=== PATIENT | male | born 1985 | race Caucasian/White ===

== ENCOUNTER 2020-09-21 09:42 | Emergency (ER) | payer MEDICAID ==
[~2020-09-21] VITALS: Ht 175.3 cm; Wt 82.0 kg
[2020-09-21 09:52] VITALS: BP 138/81
--- NOTE | 2020-09-21 10:10 | NUR ---
PT HAS CO FLANK PAIN, HEMATURIA, N/V. SYMPTOMS STARTED THIS AM.
[2020-09-21] MEDS ORDERED: ONDANSETRON 2MG/ML, 2ML ONE (10:16)
[2020-09-21] MEDS ORDERED: MORPHINE SULFATE 4 MG/ML, 1ML ONE (10:16)
[2020-09-21] MEDS ORDERED: ONDANSETRON 2MG/ML, 2ML IVPush ONE (10:30)
[2020-09-21] MEDS ORDERED: MORPHINE SULFATE 4 MG/ML, 1ML IVPush PRN (10:30)
[2020-09-21] MEDS ORDERED: SODIUM CHLORIDE FLUSH 10ML SYR IVF ONE (10:30)
[2020-09-21 10:32] LABS: BASOPHILS % (AUTO) 0 % (0-1); EOSINOPHILS % (AUTO) 1 % (1-7); LYMPHOCYTES % (AUTO) 10 % (22-44); MEAN PLATELET VOLUME 7.5 fL (7.4-10.4); MONOCYTES % (AUTO) 6 % (2-9); NEUTROPHILS % (AUTO) 83 % (42-75); PLATELET COUNT 330 x10^3/uL (130-400); RED CELL DISTRIBUTION WIDTH 13.4 % (9.4-14.8)
[2020-09-21 10:46] LABS: ALANINE AMINOTRANSFERASE 62 U/L (12-78); ANION GAP 6 mmol/L (5-15); CALCIUM 9.2 mg/dL (8.5-10.1); CHLORIDE 110 mmol/L (98-107); CREATININE 1.04 mg/dL (0.7-1.3)
[2020-09-21 10:47] LABS: ALKALINE PHOSPHATASE 118 U/L (45-117); BILIRUBIN,TOTAL 1.3 mg/dL (0.2-1.0); TOTAL PROTEIN 7.6 g/dL (6.4-8.2)
--- NOTE | 2020-09-21 10:51 | NUR ---
MEDICATED PER ORDERS, LABS, PIV. ENCOURAGED PT TO VOID FOR UA SAMPLE
[2020-09-21 10:54] LABS: MD SCAN
[2020-09-21 11:27] LABS: MICROSCOPIC INDICATED
--- NOTE | 2020-09-21 13:23 | NUR ---
Patient/Caregiver given discharge instructions and they have confirmed that they understand the instructions. Patient ambulatory with steady gait.
== END 2020-09-21 13:49 | disposition home or self-care (01) ==
LOC: ED 13:30
DX: N13.2 Hydronephrosis with renal and ureteral calculous obstruction (principal); R31.9 Hematuria, unspecified; R11.2 Nausea with vomiting, unspecified; R10.9 Unspecified abdominal pain
CPT/HCPCS: 36415; 74176; 80053; 81001; 85025; 87086; 96374; 96375; 99284; J2270; J2405

== ENCOUNTER 2020-10-13 14:14 | Observation (INO) | payer MEDICAID ==
[~2020-10-13] VITALS: Ht 177.8 cm; Wt 87.0 kg
--- NOTE | 2020-10-13 14:26 | NUR ---
PATIENT HERE LEFT SIDED FLANK PAIN BELIVES IT TO BE A KIDNEY STONE. THIS HAPPENED TO HIM THREE WEEKS AGO WELL.
[2020-10-13] MEDS ORDERED: FLUO10CA13 PO (14:31)
--- NOTE | 2020-10-13 14:34 | NUR ---
PATIETN UP AND WALKING TO BATHROOM FOR URINE SAMPLE. GOOD ON FEET
[2020-10-13] MEDS ORDERED: KETOROLAC 30 MG/1 ML IVPush ONE (15:00)
[2020-10-13] MEDS ORDERED: ONDANSETRON 2MG/ML, 2ML IVPush ONE (15:00)
[2020-10-13] MEDS ORDERED: MORPHINE SULFATE 4 MG/ML, 1ML IVPush ONE (15:00)
[2020-10-13] MEDS ORDERED: KETOROLAC 30 MG/1 ML ONE (15:02)
[2020-10-13] MEDS ORDERED: ONDANSETRON 2MG/ML, 2ML ONE (15:02)
[2020-10-13] MEDS ORDERED: MORPHINE SULFATE 4 MG/ML, 1ML ONE (15:02)
[2020-10-13 15:35] LABS: ANION GAP 3 mmol/L (5-15); CHLORIDE 113 mmol/L (98-107); CREATININE 1.13 mg/dL (0.7-1.3)
[2020-10-13 15:41] LABS: BASOPHILS % (AUTO) 0 % (0-1); EOSINOPHILS % (AUTO) 1 % (1-7); LYMPHOCYTES % (AUTO) 11 % (22-44); MEAN CORPUSCULAR HEMOGLOBIN 30.1 pg (27.5-34.5); MEAN CORPUSCULAR HGB CONC 34.6 g/dL (33.2-36.2); MEAN PLATELET VOLUME 7.7 fL (7.4-10.4); MONOCYTES % (AUTO) 7 % (2-9); NEUTROPHILS % (AUTO) 82 % (42-75); PLATELET COUNT 277 x10^3/uL (130-400); RED BLOOD COUNT 5.11 x10^6/uL (4.38-5.82)
[2020-10-13 15:42] LABS: MD NO
[2020-10-13 15:43] LABS: MICROSCOPIC INDICATED
--- NOTE | 2020-10-13 16:14 | NUR ---
PAIN RELIEVED AFTER MEDS, VSS, PT UP FOR RECHECK. NAD.
--- NOTE | 2020-10-13 16:18 | NUR ---
PLAN UROLOGY CONSULT.
[2020-10-13] MEDS ORDERED: ONDANSETRON 2MG/ML, 2ML IVPush PRN ×2 (17:00→18:30)
--- NOTE | 2020-10-13 17:00 | NUR ---
REPORT TO [employer]ES PROFESSIONAL.
--- NOTE | 2020-10-13 17:04 | NUR ---
ATE DINNER YESTERDAY AND 2 SMALL PRETZEL CHIPS 1 HOUR AGO
--- NOTE | 2020-10-13 17:28 | NUR ---
ATTEMPT TO CALL X1.
[2020-10-13] MEDS ORDERED: SODIUM CHLORIDE FLUSH 10ML SYR IVF PRN (17:30)
[2020-10-13] MEDS ORDERED: MORPHINE SULFATE 4 MG/ML, 1ML IVPush PRN (17:30)
[2020-10-13] MEDS ORDERED: SODIUM CHLORIDE 0.9% 1,000 ML IV ONE (17:30)
--- NOTE | 2020-10-13 17:36 | NUR ---
report to benoit conrad. as
--- NOTE | 2020-10-13 17:42 | NUR ---
DT PT EATING PRETZELS ADM OVERNITE FOR PAIN CONTROL AND SURG AT [address] JONATHAN MAY IN ROOM. UPDATED FLOOR NURSE ALFREDO AND OR NURSE JEAN-BAPTISTE.
[2020-10-13] MEDS ORDERED: MELATONIN 5 MG TABLET PO PRN (18:30)
[2020-10-13] MEDS ORDERED: PANTOPRAZOLE 40 MG IV IVPush SCH (18:30)
[2020-10-13] MEDS ORDERED: morphine SULFATE 10 MG/ML, 1ML IVPush PRN (18:30)
[2020-10-13] MEDS ORDERED: LABETALOL 5MG/ML, 20ML IVPush PRN (18:30)
[2020-10-13] MEDS ORDERED: HYDROcodone/APAP 5/325 TABLET PO PRN (18:30)
[2020-10-13] MEDS ORDERED: ACETAMINOPHEN 325 MG TABLET PO PRN (18:30)
[2020-10-13] MEDS ORDERED: DOCUSATE 100 MG CAPSULE PO PRN (18:30)
[2020-10-13 18:35] VITALS: BP 124/83
[2020-10-13] MEDS: ESOMEPRAZOLE 40 MG IV IVPush SCH (19:48)
[2020-10-14 00:03] VITALS: BP 120/78
[2020-10-14 06:55] VITALS: BP 129/84
[2020-10-14] MEDS ORDERED: ESOMEPRAZOLE 40 MG IV IVPush SCH (07:30)
[2020-10-14] MEDS: ESOMEPRAZOLE 40 MG IV IVPush SCH (07:49)
[2020-10-14] MEDS ORDERED: MIDAZOLAM 1 MG/ML, 2ML ONE (08:35)
[2020-10-14] MEDS ORDERED: FENTANYL PF 250 MCG/5ML ONE (08:35)
[2020-10-14] MEDS ORDERED: hydrALAzine 20 MG/ML, 1ML IV PRN (09:00)
[2020-10-14] MEDS ORDERED: ACETAMINOPHEN 325 MG TABLET PO PRN (09:00)
[2020-10-14] MEDS ORDERED: LABETALOL 5MG/ML, 20ML IV PRN (09:00)
[2020-10-14] MEDS ORDERED: ONDANSETRON 2MG/ML, 2ML IVPush PRN (09:00)
[2020-10-14] MEDS ORDERED: MEPERIDINE/PF 25MG/0.5ML IVPush PRN (09:00)
[2020-10-14] MEDS ORDERED: morphine SULFATE 10 MG/ML, 1ML IVPush PRN (09:00)
[2020-10-14] MEDS ORDERED: FLUOXETINE 10 MG CAP PO SCH (09:00)
[2020-10-14] MEDS ORDERED: HYDROmorphone 1 MG/ML, 1ML INJ IVPush PRN (09:00)
[2020-10-14] MEDS ORDERED: OXYcodone 5 MG/5 ML ORAL.SOL UDC PO PRN (09:00)
[2020-10-14] MEDS ORDERED: ONDANSETRON 2MG/ML, 2ML ONE (09:39)
[2020-10-14] MEDS ORDERED: NEOSTIGMINE 1 MG/ML, 10ML ONE (09:39)
[2020-10-14] MEDS ORDERED: DEXAMETHASONE 4 MG/ML, 1ML ONE (09:39)
[2020-10-14] MEDS ORDERED: CEFAZOLIN 1,000 MG ONE (09:39)
[2020-10-14] MEDS ORDERED: PROPOFOL 10 MG/ML, 20ML ONE (09:39)
[2020-10-14] MEDS ORDERED: GLYCOPYRROLATE 0.2MG/1ML, 5ML ONE (09:39)
[2020-10-14] MEDS ORDERED: ROCURONIUM 10MG/ML,5ML ONE (09:39)
[2020-10-14] MEDS ORDERED: SUGAMMADEX 200 MG/2 ML IVPush ONE (09:39)
[2020-10-14] MEDS ORDERED: OXYcodone 5 MG/5 ML ORAL.SOL UDC ONE (09:57)
[2020-10-14] MEDS ORDERED: FENTANYL PF 100 MCG/2ML ONE (09:57)
[2020-10-14] MEDS ORDERED: ACETAMINOPHEN 650 MG/20.3 ML UDC ONE (09:57)
[2020-10-14] MEDS: FENTANYL PF 100 MCG/2ML IV PRN ×2 (10:02→10:10)
[2020-10-14 13:15] VITALS: BP 160/88
[2020-10-14] MEDS ORDERED: POLY17PO5 PO (14:15)
[2020-10-14] MEDS ORDERED: SENN-31 PO (14:15)
[2020-10-14] MEDS ORDERED: OXYC5TAB3 PO (14:15)
== END 2020-10-14 16:00 | disposition home or self-care (01) ==
LOC: ED 15:46 → INTOOBSV 16:37 → EDIP 16:37 → 4NE 18:26 → DCLOUNGE 10-14 15:25
PROVIDERS: ADMIT Urology; ATTEND Internal Medicine
DX: N13.2 Hydronephrosis with renal and ureteral calculous obstruction (principal); Z20.822 Contact with and (suspected) exposure to COVID-19; K58.1 Irritable bowel syndrome with constipation; K21.9 Gastro-esophageal reflux disease without esophagitis; N35.912 Unspecified bulbous urethral stricture, male; F41.8 Other specified anxiety disorders; D72.829 Elevated white blood cell count, unspecified; R03.0 Elevated blood-pressure reading, without diagnosis of hypertension; Z87.442 Personal history of urinary calculi; Z79.899 Other long term (current) drug therapy
CPT/HCPCS: 36415; 52332; 74018; 76000; 80048; 81001; 85025; 87635; 96361; 96374; 96375; 96376; 99284; C1769; C2617; G0378; J0690; J1100; J1885; J2250; J2270; J2405; J2704; J2710; J3010; J7030; 99285